=== PATIENT | male | born 1985 | race Caucasian/White ===

== ENCOUNTER 2018-10-10 13:53 | Inpatient (IN) | payer OTHER ==
[~2018-10-10] VITALS: Ht 175.3 cm; Wt 148.0 kg
[2018-10-10] MEDS ORDERED: SODIUM CHLORIDE 0.9% 1000ML 1,000 ML ONE (14:27)
[2018-10-10 14:43] LABS: BASOPHILS % 0.2 % (0.0-1.0); EOSINOPHILS % 0.1 % (0.0-6.0); HEMATOCRIT 44.8 % (38.2-49.6); HEMOGLOBIN 14.8 g/dL (14.0-18.0); LYMPHOCYTES # (AUTO) 0.8 (1.0-3.2); LYMPHOCYTES % 4.7 % (18.0-39.1); MEAN CORPUSCULAR HEMOGLOBIN 29.9 pg (28-32); MEAN CORPUSCULAR VOLUME 90.5 fL (81-99); MONOCYTES # (AUTO) 1.7 (0.2-0.8); MONOCYTES % 10.6 % (4.4-11.3); NEUTROPHILS # (AUTO) 13.7 (2.1-6.9); PLATELET COUNT 354 x10e3/uL (140-360); RED BLOOD COUNT 4.95 x10e6/uL (4.3-5.7); RED CELL DISTRIBUTION WIDTH 13.5 % (11.7-14.4)
[2018-10-10] MEDS ORDERED: SODIUM CHLORIDE 0.9% 1000ML 1,000 ML IV ONE (14:45)
[2018-10-10 15:06] LABS: ALANINE AMINOTRANSFERASE 23 IU/L (0-55); ALBUMIN 2.9 g/dL (3.5-5.0); ALBUMIN/GLOBULIN RATIO 0.6 (0.8-2.0); ALKALINE PHOSPHATASE 126 IU/L (40-150); BLOOD UREA NITROGEN 8 mg/dL (7-26); BUN/CREATININE RATIO 10 (6-25); CALCIUM 9.5 mg/dL (8.4-10.2); CARBON DIOXIDE 18 mmol/L (22-29); CHLORIDE 100 mmol/L (98-107); CREATININE, SERUM 0.81 mg/dL (0.72-1.25); EST GLOMERULAR FILTRATION RATE > 60 ML/MIN (60-); GLUCOSE 296 mg/dL (74-118); SODIUM 133 mmol/L (136-145)
[2018-10-10] MEDS ORDERED: ACETAMINOPHEN 1000 MG/100 ML IV ONE (15:15)
[2018-10-10] MEDS ORDERED: MIDAZOLAM HCL 2 MG/2 ML VIAL ONE (15:19)
[2018-10-10] MEDS ORDERED: LIDOCAINE HCL 2% LOCAL INJ 5 ML SDV VIAL INJ ONE (15:19)
[2018-10-10] MEDS ORDERED: ONDANSETRON HCL INJ 2MG/ML 2ML 2 MG/ML VIAL ONE (15:19)
[2018-10-10] MEDS ORDERED: KETOROLAC TROMETHAMINE 30 MG/ML VIAL ONE (15:19)
[2018-10-10] MEDS ORDERED: METOCLOPRAMIDE HCL 10 MG/2ML VIAL ONE (15:19)
[2018-10-10] MEDS ORDERED: SEVOFLURANE INHAL SOLN 250 ML PEN BTL ONE (15:19)
[2018-10-10] MEDS ORDERED: FENTANYL CITRATE/PF 100MCG/2 ML INJ ONE (15:19)
[2018-10-10] MEDS ORDERED: PROPOFOL IV EMULSION 10 MG/ML 20 ML VIAL ONE (15:19)
--- NOTE | 2018-10-10 16:52 | NUR ---
SPOKE TO DR LOERA FOR ADMISSION AND CALLED DR PARISI - HE IS CURRENTLY IN SURGERY AND WILL CALL BACK
[2018-10-10] MEDS ORDERED: MORPHINE SULFATE 2 MG/ML SYR 1ML IV PRN (17:00)
[2018-10-10] MEDS ORDERED: DEXTROSE 50% SYRINGE 50 ML IV PRN (17:00)
[2018-10-10] MEDS: PIPER-TAZ 3.375 GM 50 ML IV SCH ×2 (17:33→21:13)
[2018-10-10] MEDS: SODIUM CHLORIDE 0.9% 1000ML 1,000 ML IV SCH ×2 (17:33→21:13)
[2018-10-10] MEDS: VANCOMYCIN 1GM/NS 250 ML 250 ML IV SCH (17:56)
[2018-10-10] MEDS ORDERED: BUPIVACAINE 0.5%/EPI 30 ML SDV INJ ONE (19:00)
[2018-10-10] MEDS ORDERED: HYDROMORPHONE 2MG/ML 2 MG/ML ML ONE (19:34)
[2018-10-10] MEDS ORDERED: PROMETHAZINE HCL (IM) 25 MG/ML VIAL ONE (19:35)
[2018-10-10] MEDS ORDERED: INSULIN REGULAR, HUMAN 100 UNIT/1 ML 3ML VIAL ONE (19:37)
--- NOTE | 2018-10-10 20:04 | Operative Report ---
DATE OF PROCEDURE: 10/10/2018 SURGEON: Paul Alvarado MD PREOPERATIVE DIAGNOSIS: Right inguinal/medial thigh abscess. OPERATIVE PROCEDURE: Incision and drainage of right medial thigh and inguinal abscess. ANESTHESIA: General endotracheal, Dr. Hawk. INDICATIONS: A 32-year-old male with a four-day history of swelling and redness in the right medial thigh involving the right inguinal area with fevers and chills. He has consented for incision and drainage of an abscess in the right medial thigh. DESCRIPTION OF PROCEDURE: The patient was brought to OR intubated. Legs were abducted in a frog-leg position. The inguinal and perineal area were prepped with Betadine, draped in sterile fashion. The patient has an abscess which is pointing in the upper medial thigh with fluctuance. Using hemostat, this opening in the abscess was enlarged to allow insertion of fingers into the cavity right inguinal canal for approximately 10 cm. The wound was stretched open to allow complete evacuation of the purulent and necrotic content of the abscess, which is irrigated with saline solution and packed tightly with iodoform gauze for hemostasis. Pressure dressing applied with 4 x 4 gauze and tape. The patient was extubated and transferred to recovery room. Estimated blood losswas 40 mL. Paul Alvarado MD DNL/MODL /[id number]
--- NOTE | 2018-10-10 20:15 | NUR ---
RECEIVED PATIENT GOING TO ROOM 203. PATIENT IS AAOX3. RESP EVEN AND UNLABORED. NO ACUTE DISTRESS NOTED AT THIS TIME. RIGHT THIGH DRESSING NOTED. NO S/S OF BLEEDING. CALL LIGHT WITHIN REACH. INSTRUCT TO CALL FOR ASSISTANCE. BED LOW/LOCKED. CONTINUE TO MONITOR CLOSELY
[2018-10-10 20:30] VITALS: BP 137/65
[2018-10-10] MEDS: INSULIN LISPRO 100 UNIT/1 ML 3ML VIAL SQ SCH (21:45)
[2018-10-10] MEDS: MORPHINE SULFATE INJ 4 MG/ML INJ 1ML IV PRN (23:09)
[2018-10-10] MEDS: ONDANSETRON HCL INJ 2MG/ML 2ML 2 MG/ML VIAL IV PRN (23:09)
[2018-10-10 23:48] VITALS: BP 137/65
[2018-10-11] VITALS (7 sets, daily range): BP systolic 120–137; BP diastolic 54–76
--- NOTE | 2018-10-11 02:10 | Consultation ---
DATE OF CONSULTATION: 10/10/2018 CHIEF COMPLAINT: Right inguinal pain and swelling. HISTORY OF PRESENT ILLNESS: The patient is a 32-year-old male, nondiabetic with a 4-day history of swelling and redness in right inguinal area extending down to the medial thigh with fevers and chills. He has denied history of previous similar infection or recent insect bite. PAST MEDICAL HISTORY: Negative. PAST SURGICAL HISTORY: Only positive for steroid injection in the back/spine. ALLERGIES: HE HAS NO DRUG ALLERGIES. SOCIAL HISTORY: He denies smoking or alcohol abuse. REVIEW OF SYSTEMS: As mentioned. No chest pain, shortness of breath, or cough. PHYSICAL EXAMINATION: VITAL SIGNS: Stable, temperature 101.4, heart rate is 107, blood pressure 150/80. GENERAL: He is awake and alert, in moderate discomfort. HEENT: Sclerae anicteric. NECK: Supple. LUNGS: Clear. HEART: Regular rhythm. ABDOMEN: Soft, nontender. EXTREMITIES: Right medial thigh and inguinal area are erythematous and edematous with palpating fluctuance in the upper medial thigh consistent with abscess formation. LABORATORY DATA: The white cell count is 16 with a hemoglobin of 14. Creatinine of 0.8. ASSESSMENT: Right inguinal and medial thigh abscess formation. PLAN: Incision and drainage under anesthesia. Attendant risks discussed. Paul Alvarado MD DNL/MODL /[id number]
[2018-10-11] MEDS: PIPER-TAZ 3.375 GM 50 ML IV SCH ×4 (04:30→21:16)
[2018-10-11] MEDS: ONDANSETRON HCL INJ 2MG/ML 2ML 2 MG/ML VIAL IV PRN (04:37)
[2018-10-11] MEDS: MORPHINE SULFATE INJ 4 MG/ML INJ 1ML IV PRN ×4 (04:37→19:06)
[2018-10-11] MEDS: VANCOMYCIN 1GM/NS 250 ML 250 ML IV SCH ×2 (05:09→17:12)
[2018-10-11] MEDS: SODIUM CHLORIDE 0.9% 1000ML 1,000 ML IV SCH ×2 (05:10→17:12)
[2018-10-11 05:20] LABS: BASOPHILS % 0.3 % (0.0-1.0); EOSINOPHILS # (AUTO) 0.2 (0.0-0.4); HEMATOCRIT 39.5 % (38.2-49.6); HEMOGLOBIN 12.8 g/dL (14.0-18.0); LYMPHOCYTES # (AUTO) 1.7 (1.0-3.2); MEAN CORPUSCULAR HEMOGLOBIN 29.7 pg (28-32); MEAN CORPUSCULAR HGB CONC 32.4 g/dL (31-35); MEAN CORPUSCULAR VOLUME 91.6 fL (81-99); MONOCYTES # (AUTO) 1.9 (0.2-0.8); MONOCYTES % 13.3 % (4.4-11.3); NEUTROPHILS # (AUTO) 10.6 (2.1-6.9); NEUTROPHILS % 72.9 % (38.7-80.0); PLATELET COUNT 321 x10e3/uL (140-360); RED BLOOD COUNT 4.31 x10e6/uL (4.3-5.7); RED CELL DISTRIBUTION WIDTH 13.6 % (11.7-14.4)
[2018-10-11 05:46] LABS: ALANINE AMINOTRANSFERASE 18 IU/L (0-55); ALBUMIN 2.2 g/dL (3.5-5.0); ALBUMIN/GLOBULIN RATIO 0.6 (0.8-2.0); ALKALINE PHOSPHATASE 97 IU/L (40-150); ANION GAP 12.7 mmol/L (8-16); BLOOD UREA NITROGEN 8 mg/dL (7-26); BUN/CREATININE RATIO 11 (6-25); CALCIUM 8.4 mg/dL (8.4-10.2); CARBON DIOXIDE 20 mmol/L (22-29); CHLORIDE 106 mmol/L (98-107); EST GLOMERULAR FILTRATION RATE > 60 ML/MIN (60-); GLUCOSE 242 mg/dL (74-118); POTASSIUM 3.7 mmol/L (3.5-5.1); SODIUM 135 mmol/L (136-145)
[2018-10-11] MEDS: INSULIN LISPRO 100 UNIT/1 ML 3ML VIAL SQ SCH ×4 (09:24→21:14)
[2018-10-11] MEDS ORDERED: HYDRALAZINE HCL 20 MG/ML VIAL IV PRN (14:45)
[2018-10-11] MEDS: FAMOTIDINE 20 MG TAB PO SCH (16:30)
[2018-10-12] VITALS (7 sets, daily range): BP systolic 127–147; BP diastolic 67–87
[2018-10-12] MEDS: ACETAMINOPHEN 325 MG TAB PO PRN (02:48)
[2018-10-12 04:12] LABS: BASOPHILS % 0.3 % (0.0-1.0); EOSINOPHILS # (AUTO) 0.3 (0.0-0.4); EOSINOPHILS % 2.5 % (0.0-6.0); HEMATOCRIT 39.9 % (38.2-49.6); HEMOGLOBIN 12.7 g/dL (14.0-18.0); LYMPHOCYTES # (AUTO) 1.7 (1.0-3.2); LYMPHOCYTES % 13.8 % (18.0-39.1); MEAN CORPUSCULAR HGB CONC 31.8 g/dL (31-35); MEAN CORPUSCULAR VOLUME 91.1 fL (81-99); MONOCYTES # (AUTO) 1.4 (0.2-0.8); MONOCYTES % 11.4 % (4.4-11.3); NEUTROPHILS # (AUTO) 8.7 (2.1-6.9); NEUTROPHILS % 71.4 % (38.7-80.0); PLATELET COUNT 323 x10e3/uL (140-360); RED BLOOD COUNT 4.38 x10e6/uL (4.3-5.7); RED CELL DISTRIBUTION WIDTH 13.5 % (11.7-14.4)
[2018-10-12] MEDS: SODIUM CHLORIDE 0.9% 1000ML 1,000 ML IV SCH ×2 (04:27→17:51)
[2018-10-12] MEDS: PIPER-TAZ 3.375 GM 50 ML IV SCH ×4 (04:27→22:11)
[2018-10-12 04:36] LABS: ANION GAP 12.4 mmol/L (8-16); BLOOD UREA NITROGEN 6 mg/dL (7-26); BUN/CREATININE RATIO 9 (6-25); CARBON DIOXIDE 22 mmol/L (22-29); CHLORIDE 106 mmol/L (98-107); CREATININE, SERUM 0.65 mg/dL (0.72-1.25); EST GLOMERULAR FILTRATION RATE > 60 ML/MIN (60-); GLUCOSE 225 mg/dL (74-118); MAGNESIUM 1.5 MG/DL (1.3-2.1); POTASSIUM 3.4 mmol/L (3.5-5.1); SODIUM 137 mmol/L (136-145)
[2018-10-12 04:43] LABS: B-TYPE NATRIURETIC PEPTIDE2 16.6 pg/mL (0-100)
[2018-10-12 04:50] LABS: FREE T4 (FREE THYROXINE) 1.68 ng/dL (0.9-1.8); THYROID STIMULATING HORMONE 0.423 uIU/mL (0.350-4.940)
[2018-10-12] MEDS: VANCOMYCIN 1GM/NS 250 ML 250 ML IV SCH ×2 (05:53→17:52)
[2018-10-12] MEDS: FAMOTIDINE 20 MG TAB PO SCH ×2 (07:30→16:30)
[2018-10-12] MEDS: INSULIN LISPRO 100 UNIT/1 ML 3ML VIAL SQ SCH (09:05)
--- NOTE | 2018-10-12 09:25 | NUR ---
Received vanco trough results from lab. Vanco trough level is 13.9. Went to patient room to hang vancomycin dose and pt states she wants to take shower first. Instructed pt to call when she is finished with shower so IV antibiotic can be started. Addendum: 10/15/18 at 1929 by Rosalinda Slaughter RN wrong chart
[2018-10-12] MEDS: MORPHINE SULFATE INJ 4 MG/ML INJ 1ML IV PRN ×2 (09:56→15:30)
[2018-10-12] MEDS: SITAGLIPTIN 100 MG TAB PO SCH (16:53)
[2018-10-12] MEDS: METFORMIN HCL 500 MG TAB CR PO SCH (16:53)
[2018-10-13] VITALS (8 sets, daily range): BP systolic 116–140; BP diastolic 56–83
[2018-10-13] MEDS: PIPER-TAZ 3.375 GM 50 ML IV SCH ×4 (04:07→20:55)
[2018-10-13 04:12] LABS: BASOPHILS # (AUTO) 0.1 (0.0-0.1); BASOPHILS % 0.6 % (0.0-1.0); EOSINOPHILS # (AUTO) 0.5 (0.0-0.4); EOSINOPHILS % 4.3 % (0.0-6.0); HEMOGLOBIN 13.5 g/dL (14.0-18.0); LYMPHOCYTES # (AUTO) 2.3 (1.0-3.2); LYMPHOCYTES % 21.4 % (18.0-39.1); MEAN CORPUSCULAR HEMOGLOBIN 29.7 pg (28-32); MEAN CORPUSCULAR HGB CONC 32.1 g/dL (31-35); MEAN CORPUSCULAR VOLUME 92.5 fL (81-99); MONOCYTES # (AUTO) 1.1 (0.2-0.8); NEUTROPHILS # (AUTO) 6.7 (2.1-6.9); PLATELET COUNT 388 x10e3/uL (140-360); RED BLOOD COUNT 4.54 x10e6/uL (4.3-5.7); RED CELL DISTRIBUTION WIDTH 13.6 % (11.7-14.4)
[2018-10-13 04:32] LABS: ANION GAP 11.5 mmol/L (8-16); BLOOD UREA NITROGEN 6 mg/dL (7-26); BUN/CREATININE RATIO 8 (6-25); CALCIUM 8.9 mg/dL (8.4-10.2); CARBON DIOXIDE 27 mmol/L (22-29); CHLORIDE 104 mmol/L (98-107); CREATININE, SERUM 0.71 mg/dL (0.72-1.25); EST GLOMERULAR FILTRATION RATE > 60 ML/MIN (60-); GLUCOSE 238 mg/dL (74-118); MAGNESIUM 1.7 MG/DL (1.3-2.1); POTASSIUM 3.5 mmol/L (3.5-5.1); SODIUM 139 mmol/L (136-145)
[2018-10-13] MEDS: VANCOMYCIN 1GM/NS 250 ML 250 ML IV SCH (05:11)
[2018-10-13] MEDS: SODIUM CHLORIDE 0.9% 1000ML 1,000 ML IV SCH ×2 (05:17→16:58)
--- NOTE | 2018-10-13 07:00 | NUR ---
BEDSIDE REPORT TAKEN FROM SUPERVISOR ACCOUNTS RECEIVABLE RN. PT DENIES NEEDS AT THIS TIME.
[2018-10-13] MEDS: FAMOTIDINE 20 MG TAB PO SCH ×2 (07:30→15:32)
[2018-10-13] MEDS: SITAGLIPTIN 100 MG TAB PO SCH ×2 (08:18→17:22)
[2018-10-13] MEDS: METFORMIN HCL 500 MG TAB CR PO SCH ×2 (08:18→17:22)
[2018-10-13] MEDS ORDERED: VANCOMYCIN HCL 1.25 GM in SODIUM CHLORIDE 0.9% 250ML 300 ML IV SCH (09:15)
[2018-10-13] MEDS: MORPHINE SULFATE INJ 4 MG/ML INJ 1ML IV PRN ×3 (09:57→22:00)
[2018-10-13] MEDS: ACETAMINOPHEN 325 MG TAB PO PRN ×2 (11:42→20:55)
[2018-10-13] MEDS: VANCOMYCIN HCL 1.25 GM in SODIUM CHLORIDE 0.9% 250ML 250 ML IV SCH ×2 (12:00→22:46)
--- NOTE | 2018-10-13 14:54 | NUR ---
GAVE PACKET OF INFORMATION WITH [facility] FOR ASSISTANCE WITH LOW TO NO INCOME TO PATIENT. RESOURCES THAT PATIENT MAY BE ABLE TO FOLLOW UP UPON DISCHARGE. PT EDUCATED ON EACH RESOURCE AND UNDERSTANDING HOW TO FOLLOW UP TO SEE IF QUALIFIED FOR EACH RESOURCE.
--- NOTE | 2018-10-13 16:09 | NUR ---
WOUND PACKING REMOVED PER DR. PARISI ORDERS. PT TOLERATED. DRESSING PLACED OVER WOUND.
--- NOTE | 2018-10-13 19:05 | NUR ---
BEDSIDE REPORT GIVEN TO PUMP OPERATOR BYPRODUCTS RN
--- NOTE | 2018-10-13 21:15 | NUR ---
Collected blood for vanc trough and sent for labs.
[2018-10-14] VITALS (7 sets, daily range): BP systolic 108–148; BP diastolic 61–84
[2018-10-14] MEDS: SODIUM CHLORIDE 0.9% 1000ML 1,000 ML IV SCH ×3 (03:37→16:46)
[2018-10-14] MEDS: PIPER-TAZ 3.375 GM 50 ML IV SCH ×4 (03:37→22:09)
--- NOTE | 2018-10-14 07:00 | NUR ---
BEDSIDE REPORT TAKEN FROM PROCESS TANK TENDER RN. PT DENIES NEEDS AT THIS TIME.
[2018-10-14] MEDS: FAMOTIDINE 20 MG TAB PO SCH ×2 (07:30→15:33)
[2018-10-14] MEDS: METFORMIN HCL 500 MG TAB CR PO SCH ×2 (07:51→17:44)
[2018-10-14] MEDS: SITAGLIPTIN 100 MG TAB PO SCH ×2 (07:51→17:44)
--- NOTE | 2018-10-14 09:30 | NUR ---
WOUND DRESSING CHANGE COMPLETED. PT TOLERATED WELL. PT DENIED NEEDS AT THIS TIME.
[2018-10-14] MEDS: INSULIN LISPRO 100 UNIT/1 ML 3ML VIAL SQ SCH ×3 (11:30→21:00)
--- NOTE | 2018-10-14 16:23 | NUR ---
Nutrition Screen Note RD Recommendation for Physician: -Continue current diet as ordered. Plan of Care: RD following, monitoring for tolerance and adequacy, diet education Nutrition reason for involvement: MD consult- pt requested DM education Primary Diagnose(s): Abscess of buttock, inguinal Abscess, new DM PMH: None reported in EMR. Ht: 69 in Wt: 329 lb BMI: 48.7 kg/m2 IBW:[address] Assessment: 10/14: 32 YOM admitted for an abscess of buttock, inguinal abscess and high BG. Pt has an A1c of 11.5%. Pt requested information regarding DM diet; pt was newly diagnosed. Pt also had some c/o about receiving more items on his meal tray than what he asked for. Pt was educated on the DM diet and given handouts. Pt stated DM ran in his family and he is familiar with checking his blood sugars, what carbs are, and how to eat correctly. Pt was appropriately educated on healthy ways to help control BG levels. Pt stated he knows how to lower his sugars and he is going to eat the way he feels is best. Reiterated importance of eating properly and gave more tips to help live a healthy lifestyle while being diabetic. Pt verbalized understanding and accepted handout. RD personally ordered his lunch meal and made sure his dislikes and likes were documented within health touch and addressed all other concerns regarding food processing chemist with pt. Pt denied a poor appetite, any recent unintentional weight loss as well as N/V/C/D and chewing or swallowing issues. Noted- pt is on Januvia and metformin per EMR, Glucose levels elevated. Chart reviewed. Labs and meds reviewed. Will continue to monitor. Current Diet: 1800 ADA Malnutrition Evaluation (10/14) The patient does not meet criteria for a specified degree of malnutrition at this time. Will re-evaluate at follow-up as appropriate. Diet Education Needs Assessment: Diet education indicated, pt agreeable. Nutrition Education Learner(s): pt Time spent: 30 Barriers: No barriers identified. Cultural/Language Modifications: No cultural/language modifications noted. Readiness: Acceptance. Method: Provided pt with Diabetes Education and Nutrition care manual handout. Topics:Carbohydrate exchanges, Carbohydrate counting handouts, Reading the nutrition label, meal planning tips, exercise tips, servings/portion sizes, S/S of hypo & hyperglycemia Understanding/Compliance: Expect good understanding/compliance from pt. Will benefit from reinforcement. All questions have been answered. Nutrition Care Level: Low Signed: Paloma Abdi, MS, RD, LD
--- NOTE | 2018-10-14 19:00 | NUR ---
BEDSIDE REPORT GIVEN TO MEDICAL RECEPTIONIST RN
[2018-10-15] VITALS: BP 128/66
[2018-10-15 04:00] VITALS: BP 105/74
[2018-10-15] MEDS: PIPER-TAZ 3.375 GM 50 ML IV SCH ×2 (04:00→08:31)
[2018-10-15 05:13] LABS: BASOPHILS # (AUTO) 0.1 (0.0-0.1); BASOPHILS % 0.6 % (0.0-1.0); EOSINOPHILS # (AUTO) 0.6 (0.0-0.4); EOSINOPHILS % 7.5 % (0.0-6.0); HEMATOCRIT 41.3 % (38.2-49.6); HEMOGLOBIN 13.3 g/dL (14.0-18.0); LYMPHOCYTES # (AUTO) 2.3 (1.0-3.2); LYMPHOCYTES % 28.4 % (18.0-39.1); MEAN CORPUSCULAR HEMOGLOBIN 29.5 pg (28-32); MEAN CORPUSCULAR HGB CONC 32.2 g/dL (31-35); MEAN CORPUSCULAR VOLUME 91.6 fL (81-99); MONOCYTES # (AUTO) 0.9 (0.2-0.8); MONOCYTES % 11.2 % (4.4-11.3); NEUTROPHILS # (AUTO) 4.1 (2.1-6.9); NEUTROPHILS % 51.3 % (38.7-80.0); PLATELET COUNT 411 x10e3/uL (140-360); RED BLOOD COUNT 4.51 x10e6/uL (4.3-5.7); RED CELL DISTRIBUTION WIDTH 13.6 % (11.7-14.4)
[2018-10-15 05:51] LABS: ANION GAP 11.8 mmol/L (8-16); BLOOD UREA NITROGEN 7 mg/dL (7-26); BUN/CREATININE RATIO 9 (6-25); CARBON DIOXIDE 29 mmol/L (22-29); CHLORIDE 103 mmol/L (98-107); CREATININE, SERUM 0.75 mg/dL (0.72-1.25); EST GLOMERULAR FILTRATION RATE > 60 ML/MIN (60-); GLUCOSE 186 mg/dL (74-118); POTASSIUM 3.8 mmol/L (3.5-5.1); SODIUM 140 mmol/L (136-145)
[2018-10-15] MEDS: INSULIN LISPRO 100 UNIT/1 ML 3ML VIAL SQ SCH (07:30)
[2018-10-15] MEDS: FAMOTIDINE 20 MG TAB PO SCH (07:30)
[2018-10-15 07:55] VITALS: BP 129/78
[2018-10-15 08:00] VITALS: BP 129/78
[2018-10-15] MEDS: METFORMIN HCL 500 MG TAB CR PO SCH (08:31)
[2018-10-15] MEDS: SITAGLIPTIN 100 MG TAB PO SCH (08:31)
[2018-10-15] MEDS: SODIUM CHLORIDE 0.9% 1000ML 1,000 ML IV SCH (08:31)
[2018-10-15] MEDS ORDERED: TYLENOL WITH C1 EACH PO (09:42)
[2018-10-15] MEDS ORDERED: AMOXICILLIN500 MG PO (09:42)
[2018-10-15] MEDS ORDERED: GLUCOPHAGE XR500 MG PO (09:45)
[2018-10-15] MEDS ORDERED: JANUVIA100 MG PO (09:45)
[2018-10-15] MEDS ORDERED: ONDANSETRON HCL 4 MG ORAL DISINTEGRATING TAB PO PRN (10:45)
--- NOTE | 2018-10-15 10:50 | NUR ---
Educated patient on wound care treatment. Voiced understanding and returned demonstration.
--- NOTE | 2018-10-15 11:29 | NUR ---
Right AC IV discontinued. 2x2 gauze and tape placed. Taken via wheelchair by PCT to personal car. AAOX4 to time, person, place, situation. Respirations even and unlabored. Dressing to right buttock clean, dry, and intact. Discharge instructions, rx, and all personal belongings taken with patient.
--- NOTE | 2018-10-16 01:56 | Discharge Summary ---
ADMISSION DIAGNOSES: Right medial thigh/inguinal abscess, hyperglycemia without diagnosis of diabetes, and morbid obesity. DISCHARGE DIAGNOSES: Right medial thigh/inguinal abscess, hyperglycemia without diagnosis of diabetes, morbid obesity, newly diagnosed type 2 diabetes, status post I and D of right medial thigh and inguinal abscess. HISTORY: None. SURGICAL HISTORY: Lumbar LOUIE. FAMILY HISTORY: The patient's mom and dad have diabetes. The patient's grandma has cancer. SOCIAL HISTORY: The patient admits to occasional alcohol use. He says he quit smoking about 2-3 weeks ago. HOSPITAL COURSE: A 32-year-old male complains of right thigh bump that he noticed on Saturday. When he squeezed it, it was painful, but no drainage was noted. He had a temperature of 102 on Saturday[address] drives a lot, so it rubbed against the seat. The pain is worse with touching the site and improved with elevating the legs. On admission, patient was started on vancomycin and Zosyn. The patient had an I and D on 10/10. During surgery, the wound was packed with gauze. Wound culture came back positive for strep group C and penicillin was recommended per cultures. The patient was cleared for discharge by Surgery with no packing needed. He will keep the wound clean and dry as instructed by Surgery. The patient will discharge home with Tylenol No.3, amoxicillin for 10 days, metformin, and Januvia. He will follow up with primary care in 1-2 weeks and Surgery as discussed. He was advised on a diabetic diet. The patient understands discharge instructions and agrees to plan. Vital signs stable, patient afebrile. Dictated by Torri Carrington NP MD IRINA Flores/MODTracee /[id number]
== END 2018-10-15 11:29 | disposition home or self-care (01) | DRG 603 ==
LOC: ER 13:53 → ERHOLD 17:04 → MED/SURG2 20:15
PROVIDERS: ADMIT Internal Medicine; ATTEND Internal Medicine
PROC: 0J9C0ZX Drainage of Pelvic Region Subcutaneous Tissue and Fascia, Open Approach, Diagnostic (ICD-10-PCS; 2018-10-10)
PROC: 0J9L0ZX Drainage of Right Upper Leg Subcutaneous Tissue and Fascia, Open Approach, Diagnostic (ICD-10-PCS; principal; 2018-10-10 18:30)
DX: L02.415 Cutaneous abscess of right lower limb (principal); Z68.42 Body mass index [BMI] 45.0-49.9, adult; Z79.4 Long term (current) use of insulin; E66.01 Morbid (severe) obesity due to excess calories; F17.200 Nicotine dependence, unspecified, uncomplicated; E11.65 Type 2 diabetes mellitus with hyperglycemia; B95.4 Other streptococcus as the cause of diseases classified elsewhere
CPT/HCPCS: 36415; 80048; 80053; 80061; 80202; 82948; 83036; 83605; 83735; 83880; 84439; 84443; 85025; 87040; 87071; 87075; 87205; 99284; J1885; J2001; J2250; J2270; J2405; J2543; J2550; J2765; J3370; J7030; J7050